=== PATIENT | male | born 1945 | race Caucasian/White ===

== ENCOUNTER → 2019-01-09 | Outpatient (CLI) | payer MEDICARE, BC ==
[~2019-01-09] MED LIST: ALTACE 5MG5 MG PO; FLOMAX 0.40.4 MG/CAP PO; HCTZ 25MG TAB25 MG PO; LIPITOR 80MG80 MG PO; LOFIBRA160 MG PO; LOTENSIN40 MG PO; NORVASC2.5 MG PO
== END ==
LOC: COL.RAD 08:03
DX: I12.9 Hypertensive chronic kidney disease with stage 1 through stage 4 chronic kidney disease, or unspecified chronic kidney disease (principal); R93.0 Abnormal findings on diagnostic imaging of skull and head, not elsewhere classified; R51 Headache; H53.40 Unspecified visual field defects; R63.4 Abnormal weight loss; N18.3 Chronic kidney disease, stage 3 (moderate)
CPT/HCPCS: A9585